=== PATIENT | female | born 1955 | race Caucasian/White ===

== ENCOUNTER → 2016-12-18 | Outpatient (CLI) | payer OTHER ==
[2016-12-18 17:18] LABS: Potassium 4.3 mmol/L (3.5-5.1)
== END | disposition home or self-care (01) ==
LOC: LABWHC1 16:18
PROVIDERS: ATTEND Orthopaedic Surgery
DX: Z01.818 Encounter for other preprocedural examination (principal)
CPT/HCPCS: 36415; 80051

== ENCOUNTER → 2021-11-20 | Outpatient (CLI) | payer MEDICARE ==
--- NOTE | 2021-11-22 14:46 | MR ---
EXAMINATION TYPE: MR kidney wo/w con DATE OF EXAM: 11/20/2021 COMPARISON: Outside CT abdomen July 17, 2021 HISTORY: Rt kidney cyst per patient. Abnormal CT. Nonsimple cyst. CONTRAST: Standard multiplanar, multisequence MRI departmental protocol images were obtained without contrast a nd with 12 mL intravenous Gadavist gadolinium contrast. Imaging performed of the abdomen focusing on the bilateral kidneys. FINDINGS: Kidneys: Corresponding to recent CT there is exophytic round well-circumscribed lesion laterally lowe r pole level measuring 1.5 x 1.5 x 1.8 cm. Lesion shows T1 isointensity to slight hyperintensity rela tive to cortex and T2 isointensity without restricted diffusion. Lesion on dynamic postcontrast imagi ng shows no internal enhancement. Findings consistent with proteinaceous or hemorrhagic cyst. Remaind er of both kidneys show some cortical thinning. No concerning greater than 1.0 cm solid or cystic mas s is present bilaterally. There is 7 mm simple-appearing exophytic thin-walled cyst medially lower po le level axial image 24 in the right kidney. No hydronephrosis is seen bilaterally. Other: Lung bases are grossly clear. There is diffuse signal dropout in the liver consistent with dif fuse fatty infiltration. Gallbladder, spleen, pancreas, and both adrenal glands appear within normal limits. No concerning small or large bowel dilatation. Postsurgical change L4-L5 level is present cau sing artifact. No suspicious enhancement is seen. No intra-abdominal ascites. No greater than 3.0 cm AAA. IMPRESSION: Simple appearing 7 mm thin-walled cyst medially anteriorly lower pole right kidney and th in walled proteinaceous or hemorrhagic 1.8 cm exophytic cyst laterally mid to lower pole of the right kidney correspond to areas of concern on recent CT. No suspicious solid or cystic mass to suggest ma lignancy.
== END | disposition home or self-care (01) ==
LOC: RADMRIMAIN 05:58
PROVIDERS: ATTEND Urology
DX: N28.1 Cyst of kidney, acquired (principal)
CPT/HCPCS: 74183; A9585

== ENCOUNTER → 2023-02-04 | Outpatient (CLI) | payer MEDICARE ==
--- NOTE | 2023-02-08 12:26 | MR ---
EXAMINATION TYPE: MR lumbar spine wo con DATE OF EXAM: 02/04/2023 7:35 PM COMPARISON: CT 07/17/2021. CLINICAL INDICATION: Female, 67 years old with history of M47.816;PAIN AND DEGENERATION ABOVE AND BEL OW FUSION X 1 YEAR - HX OF FUSION 8 YEARS AGO TECHNIQUE: Multi planar, multi sequence imaging was performed utilizing: T1-weighted, T2-weighted, a nd turbo inversion recovery imaging of the lumbar spine. IV Contrast: None. FINDINGS: Alignment: The lumbar vertebral bodies have preserved heights with grade 1 anterolisthesis of L5 on S 1.. Cord: The conus medullaris and the distal spinal cord appear unremarkable with regards to their signa l intensity and morphology. Bones/Discs: Multilevel disc degeneration changes with inversion recovery signal of the adjoining end plates of L1 and L2 compatible with reactive edema. There is post surgical changes to L4 and L5. Scat tered osteophyte formation and Schmorl's nodes and disc space narrowing. T12-L1: No evidence of significant spinal canal stenosis or neural foraminal stenosis. L1-L2: No evidence of significant spinal canal stenosis or neural foraminal stenosis. L2-L3: Left central disc extrusion with inferior migration of disc material up to 14 mm. This materia l abuts the forming left nerve roots series 601 image 21. Facet joint arthropathy with moderate bilat eral neural foraminal stenosis. L3-L4: Disc bulge /osteophyte and facet joint arthropathy result in mild spinal canal and moderate to severe left and moderate right bilateral neural foraminal stenosis. L4-L5: Disc bulge and facet joint arthropathy result in mild spinal canal and moderate to severe bila teral neural foraminal stenosis. L5-S1: Disc uncovering from grade 1 anterolisthesis and facet joint arthropathy with mild spinal debra l stenosis and moderate to severe right and moderate left neural foraminal stenosis. No significant spinal canal or neural foraminal stenosis in the remainder of the visualized levels. IMPRESSION: 1. L2-L3 left central disc herniation with inferior migration of disc material. This abuts the formi ng nerve on the left. 2. Post surgical change with varying degrees of neural foraminal stenosis throughout the spine worse at L5-S1 on the right with moderate to severe, bilateral L4-L5 moderate to severe, and L3-L4 moderat e severe left.
== END | disposition home or self-care (01) ==
LOC: RADMRIMAIN 18:26
PROVIDERS: ATTEND Orthopaedic Surgery Orthopaedic Surgery of the Spine
DX: M47.816 Spondylosis without myelopathy or radiculopathy, lumbar region (principal); M51.36 Other intervertebral disc degeneration, lumbar region; M99.73 Connective tissue and disc stenosis of intervertebral foramina of lumbar region
CPT/HCPCS: 72148

== ENCOUNTER → 2024-06-07 | Outpatient (CLI) | payer OTHER ==
[2024-06-07 10:42] VITALS: BP 120/72; PULSE 73; RESP 16; TEMP 98.1
--- NOTE | 2024-06-07 11:22 | P.HPOB ---
History of Present Illness H&P Date: 06/07/24 Chief Complaint: The patient is here for her routine gynecologic exam. This is a 69-year-old -0-2-0 an LMP of 2005. The patient is here to reestablish with this office. She was last seen here on 06/24/2016. She is without gynecologic complaints and denies any postmenopausal bleeding. She states she had a mammogram and bone density test done at [facility] on 06/03/2024. Results are pending. Review of Systems She states she has lost about 15 pounds over the past year. She denies respiratory or cardiac problems. GI: Occasional diarrhea and occasional issues with hemorrhoids. : She states she has been having urinary leakage for several years. This seems to be worse with diuretics. She seems to leak with coughing, sneezing, standing up, and bending over. She has seen 2 urologist for this in the past. She has never had surgery for incontinence. Past Medical History Past Medical History: Heart Failure, Diabetes Mellitus, Hypertension, Liver Disease, Renal Disease, Thyroid Disorder Additional Past Medical History / Comment(s): arthritis, gout, hypothyroidism, chronic kidney disease, type 2 diabetes, and chronic back problems with degenerative disc disease. Past DATA ANALYTICS ANALYST history: LEEP procedure in 1984 with HPV. No other history of STDs. History of Any Multi-Drug Resistant Organisms: None Reported Past Surgical History: Appendectomy, Back Surgery, Breast Surgery, Section Additional Past Surgical History / Comment(s): BILAT OVARIAN WEDGE RESECTION. GANGLION CYST REMOVED FROM LT HAND. CYST REMOVED FROM LT FOOT. ORIF RT LITTLE FINGER. lumbar lami with discectomy L2-l3. Benign breast biopsy, cervical conization approximately 1999, full D&Cs. Past Psychological History: Depression Smoking Status: Never smoker Past Alcohol Use History: None Reported Past Drug Use History: None Reported Additional History: She was a and has not been sexually active since approximately 1998. She lives on her own. - Past Family History Mother Family Medical History: Cancer Additional Family Medical History / Comment(s): Breast cancer. . Ma erwin grandmother also had breast cancer. Father Family Medical History: Diabetes Mellitus, Myocardial Infarction ([place]) Additional Family Medical History / Comment(s): . Paternal aunt had breast cancer. Medications and Allergies Home Medications Medication Instructions Recorded Confirmed Type Albuterol Inhaler [Ventolin 1 puff INHALATION DIRECTED 08/11/14 06/07/24 History Inhaler] Enalapril [Vasotec] 10 mg PO DAILY 08/11/14 06/07/24 History Fluticasone Propionate [Flonase] 1 spray INTRANASAL BID 08/11/14 06/07/24 History Hydroxychloroquine Sulfate 200 mg PO BID 08/11/14 06/07/24 History [Plaquenil] Levothyroxine Sodium [Synthroid] 100 mcg PO DAILY 08/11/14 06/07/24 History Sertraline [Zoloft] 50 mg PO QAM 08/11/14 06/07/24 History Gabapentin 300 mg PO TID 10/18/14 06/07/24 History Sertraline HCl 100 mg PO HS 10/18/14 06/07/24 History Acetaminophen [Acetaminophen ER] 600 mg PO DAILY 06/07/24 06/07/24 History Atorvastatin [Lipitor] 10 mg PO DAILY 06/07/24 06/07/24 History Buprenorphine [Buprenorphine 5 1 patch TOPICAL WEEKLY 06/07/24 06/07/24 History MCG/HR] Dupilumab [Dupixent Syringe] 300 mg INJ DIRECTED 06/07/24 06/07/24 History Famotidine 20 mg PO DAILY 06/07/24 06/07/24 History Furosemide [Lasix] 20 mg PO DAILY 06/07/24 06/07/24 History Magnesium Oxide [Mag-Ox] 400 mg PO DAILY 06/07/24 06/07/24 History allopurinoL 300 mg PO DAILY 06/07/24 06/07/24 History traZODone HCL [Desyrel] 50 mg PO DIRECTED PRN 06/07/24 06/07/24 History Allergies Allergy/AdvReac Type Severity Reaction Status Date / Time nifedipine Allergy Swelling Unverified 06/07/24 10:25 semaglutide [From Ozempic] Allergy Nausea & Unverified 06/07/24 10:25 Vomiting & Diarrhea Sulfa (Sulfonamide Allergy DIZZINESS Verified 06/07/24 10:24 Antibiotics) Exam Vital Signs Temp Pulse Resp BP Pulse Ox 06/07/24 10:40 98.1 F 73 16 120/72 97 Intake and Output 06/06/24 06/07/24 06/07/24 22:59 06:59 14:59 Other: Weight 115.666 kg Height 5 feet 3 inches, weight 255 pounds, BMI 45.2. This is a well-developed well-nourished obese white female who is alert and oriented times 3 in no acute distress. HEENT: Within normal limits. NECK: Supple without mass or thyromegaly. CHEST AND LUNGS: Clear to auscultation. HEART: Regular rate and rhythm. BREASTS: Are without mass or discharge. AXILLARY EXAM: Negative for adenopathy. BACK: Negative for CVA tenderness. ABDOMEN: Soft,, nontender, without palpable masses. PELVIC EXAM: Normal external genitalia with mild atrophy. Cervix and vagina appear normal with mild to moderate atrophy. The cervix appears nulliparous. There is no unusual discharge. There is no evidence of prolapse. The uterus is midposition, nongravid size and nontender. There are no palpable adnexal masses or tenderness. Bimanual examination is somewhat limited secondary to her size. There is minimal urethral mobility with cough and Valsalva. No urinary leakage was demonstrated. RECTAL EXAM: Rectovaginal exam is negative for mass or tenderness and is negative for occult blood. EXTREMITIES: Nontender. IMPRESSION: 1. 69-year-old menopausal female with normal gynecologic exam. 2. Multiple medical problems. 3. Obesity. 4. Complaints of urinary incontinence with no significant physical findings on exam today. Probable stress urinary incontinence made worse with diuretics. PLAN: 1. Pap smear was performed. Her last Pap smear was on 06/24/2016. I do not have that result at this time. I will try to obtain that result since it was done here. We will continue Pap smears until we have had 3 negative Pap smears within a 10-year period. 2. Self breast awareness was discussed with the patient. We have also discussed symptoms associated with inflammatory breast cancer. 3. Screening mammogram was recently done at [facility] according to the patient on 06/03/2024. She will try to get me the results for this. 4. Osteoporosis prevention was discussed. I have stressed the importance of adequate calcium, vitamin D and regular exercise. Recommended amounts of calcium and vitamin D were also discussed. Bone density testing was recently done on 06/03/2024 at [facility]. She will try to get me this result. 5. We have had a long discussion regarding her urinary leakage. I stressed the importance of trying to empty her bladder as completely as possible as well as doing timed voids and Kegel exercises. These were explained to the patient. She states she has seen 2 urologist in the past. She has never had surgery for this. If she continues to have issues with the leakage, we will consider referral to Dr. Tirso Mejía, the gynecologic urologist. She was instructed to call if she wishes to proceed with this referral. 6. The patient was advised to return in 1-2 years for her well woman examination and as needed.
== END ==
LOC: WWCWWP 10:09
PROVIDERS: ATTEND Obstetrics & Gynecology

== ENCOUNTER 2024-08-02 09:34 | Day surgery (SDC) | payer OTHER ==
[2024-08-02] MEDS ORDERED: LIDOCAINE 1% (10MG/ML) FOR IV START INTRADERMA PRN (10:33)
[2024-08-02] MEDS: IV FLUID CONTINUATION 1,000 ML IV ONE (10:42)
[2024-08-02 10:54] VITALS: RESP 16; TEMP 99.3
[2024-08-02] MEDS: LACTATED RINGERS 1,000 ML IV SCH (11:02)
[2024-08-02 11:03] LABS: Glucose,Whole Blood 116 mg/dL (70-110)
[2024-08-02] MEDS ORDERED: PROPOFOL 10 MG/ML 20 ML VIAL IV ONE (11:34)
--- NOTE | 2024-08-02 11:53 | P.PCN ---
Date of Procedure: 08/02/24 Procedure(s) Performed: BRIEF HISTORY: Patient is a 69-year-old pleasant white female scheduled for an elective colonoscopy as a part of screening for colon cancer. PROCEDURE PERFORMED: Colonoscopy. PREOPERATIVE DIAGNOSIS: Screening for colon cancer. IV sedation per Anesthesia. PROCEDURE: After informed consent was obtained, the patient, was brought into the endoscopy unit. IV sedation was administered by Anesthesia under continuous monitoring. Digital rectal examination was normal. Initially the Olympus CF-160 flexible video colonoscope was then inserted in the rectum, gradually advanced into the cecum without any difficulty. Careful examination was performed as the scope was gradually being withdrawn. Ileocecal valve and the appendiceal orifice were visualized and appeared normal. Prep was.. Mucosa of the cecum, ascending colon, transverse colon, descending colon, sigmoid colon, and rectum appeared normal. Scattered sigmoid diverticulosis. Retroflexion was performed in the rectum and no lesions were seen. The patient tolerated the procedure well. IMPRESSION: Normal-appearing colon from rectum to cecum no evidence of colorectal neoplasia. Scattered sigmoid diverticulosis. RECOMMENDATIONS: Findings of this examination were discussed with the patient as well as her family. She was advised to have repeat screening colonoscopy in 10 years.
[2024-08-02 12:26] VITALS: BP 128/70; PULSE 78
== END 2024-08-02 12:34 | disposition home or self-care (01) ==
LOC: ORWHC2ENDO 09:34
PROVIDERS: ATTEND Internal Medicine Gastroenterology
DX: Z12.11 Encounter for screening for malignant neoplasm of colon (principal); K57.30 Diverticulosis of large intestine without perforation or abscess without bleeding; I50.9 Heart failure, unspecified; E78.5 Hyperlipidemia, unspecified; E03.9 Hypothyroidism, unspecified; I13.0 Hypertensive heart and chronic kidney disease with heart failure and stage 1 through stage 4 chronic kidney disease, or unspecified chronic kidney disease; E11.22 Type 2 diabetes mellitus with diabetic chronic kidney disease; N18.30 Chronic kidney disease, stage 3 unspecified; F32.A Depression, unspecified; E66.9 Obesity, unspecified; Z88.2 Allergy status to sulfonamides; Z88.8 Allergy status to other drugs, medicaments and biological substances; Z79.899 Other long term (current) drug therapy; Z79.890 Hormone replacement therapy
CPT/HCPCS: 45378; J2704

== ENCOUNTER → 2024-10-28 | Outpatient (CLI) | payer OTHER ==
--- NOTE | 2024-10-28 12:37 | US ---
EXAMINATION TYPE: US kidneys/renal and bladder DATE OF EXAM: 10/28/2024 COMPARISON: MRI 11/20/2021 CLINICAL INDICATION: Female, 69 years old with history of N18.30 CHRONIC KIDNEY DISEASE, STAGE 3 UNSP ECIFIED; Hx HTN, DM, and recent water retention. Hx RIght renal cyst TECHNIQUE: Grayscale imaging of the bilateral kidneys and urinary bladder: FINDINGS: EXAM MEASUREMENTS: Right Kidney: 9.6 x 4.6 x 3.9 cm Left Kidney: 9.6 x 5.0 x 4.6 cm Post Void Residual Volume: NA mL Right Kidney: Exophytic cyst redemonstrated = 2.2 x 2.1 x 1.9 cm Left Kidney: WNL Bladder: Not fully distended, WNL as visualized Bilateral Jets seen: No Normal Post Void Residual: NA There is no evidence for hydronephrosis at this point in time. No nephrolithiasis is seen. Stable 2. 2 cm exophytic lesion right kidney likely reflecting hemorrhagic or proteinaceous cyst. The urinary bladder is anechoic. IMPRESSION: As above. [facility], , 10/28/2024 12:35 PM
== END | disposition home or self-care (01) ==
LOC: RADUSWWP 12:01
PROVIDERS: ATTEND Internal Medicine Hospice and Palliative Medicine
DX: N28.1 Cyst of kidney, acquired (principal); N18.30 Chronic kidney disease, stage 3 unspecified
CPT/HCPCS: 76770

== ENCOUNTER → 2025-03-15 | Outpatient (CLI) | payer OTHER ==
[2025-03-15 14:09] VITALS: BP 165/79; PULSE 88; RESP 16; TEMP 98
--- NOTE | 2025-03-15 14:53 | P.SLEEP ---
History of Present Illness DATE: 03/15/2025 CONSULTATION/NEW PATIENT EVALUATION HISTORY OF PRESENT ILLNESS/SLEEP-WAKE EVALUATION: 69-year-old lady had been e valuated in the sleep center for possible obstructive sleep apnea hypopnea syndrome. SLEEP SCHEDULE: Usually sleep schedule from midnight until around 10 AM. FALLING ASLEEP: Patient has difficulties with falling asleep, takes trazodone at bedtime. DURING SLEEP: Patient wakes up from sleep up to 3 times with 3 episodes of nocturia. Positive history of loud snoring. Positive history of grinding teeth, dry mouth, episodes of sleep talking, restless leg symptoms, episodes of gasping for air, sweating, heartburn no history of hypnogogical hallucinations, sleep paralysis, or cataplexy. DURING THE DAY/WAKE STATE: In the morning patient wake up tired, has problems with memory, concentration, irritability. Oxford sleepiness scale is increased to 12. Patient takes 1 nap during the day. PAST MEDICAL HISTORY: Asthma, gout, hypertension, diabetes mellitus, hyperlipidemia, hypothyroidism. PAST SURGICAL HISTORY: Basal cell cancer removed from the skin of the face. MEDICATIONS: Please see below. SOCIAL HISTORY: Please see belowl. FAMILY HISTORY: Please see below. REVIEW OF SYSTEMS: Loud snoring, awakenings from sleep, sleepiness during the day. No fevers. No double vision. No recent chest pain. No shortness of breath. No abdominal pain. No bleeding episodes. No blood in urine. No seizure episodes. PHYSICAL EXAMINATION: GENERAL: A pleasant patient without any distress. VITAL SIGNS: Please see below, weight 274 pounds, BMI 49.9. HEENT: PERRLA, EOMI. Evaluation of oropharynx showed tongue protrudes midline, low position of soft palate Mallampati 3, short distance between soft palate and posterior pharyngeal wall. NECK: Supple. No JVD. Thyroid is not palpable. 16 inches in circumference. LUNGS: Clear to percussion and to auscultation. Good air exchange. No wheezing or rhonchi. HEART: S1, S2 regular. No murmurs, gallops or rubs. ABDOMEN: Soft and nontender. Bowel sounds are present. No organomegaly appreciated. EXTREMITIES: No clubbing or cyanosis. ADVANCED SEAL DELIVERY SYSTEM: Awake, alert, and oriented x3. Cranial nerves 2 to 7 intact. There is no fasciculation or atrophy noted. No focal deficits observed. ASSESSMENT: 1. Loud snoring, multiple awakenings from sleep, low position of soft palate Mallampati 3, short distance between soft palate and posterior pharyngeal wall, wide neck 16 inches in circumference, sleepiness with Oxford Sleepiness Scale 12. Obstructive sleep apnea hypopnea syndrome. 2. Obesity, BMI 49.9. 3. Asthma. 4. Hypertension. 5 gout. 6 . Hyperlipidemia. 7. Diabetes mellitus. 8. Hypothyroidism. 9 . Status post basal cell carcinoma removed. 10. Status post . 11. Status post low back fusion and laminectomy. 12. Status post tonsillectomy. PLAN: 1. Polysomnography for evaluation of patient's breathing during sleep. 2. Following plan after reading sleep study. 3. Preferable position during sleep on the side. 4. No driving if patient feels any sleepiness. Patient is aware of civil and criminal liability for unsafe driving. 5. Sleep hygiene with regular sleep time for at least 7.5-8 hours. 6. Watching and losing weight. Thank you very much for referring this patient for consultation. Sincerely, Clinton Michael MD, PhD, FAASM. Diplomat of [place] [employer], Sleep Medicine Board by [place] [employer] [place] [employer] [facility] [place] cc: Ramses Avila MD Past Medical History Past Medical History: Coronary Artery Disease (CAD), Heart Failure, Diabetes M ellitus, Hyperlipidemia, Hypertension, Liver Disease, Renal Disease, Thyroid Disorder Additional Past Medical History / Comment(s): arthritis, gout, hypothyroidism, chronic kidney disease, type 2 diabetes, and chronic back problems with degenerative disc disease, spinal stenosis, uses walker, has homecare History of Any Multi-Drug Resistant Organisms: None Reported Past Surgical History: Appendectomy, Back Surgery, Breast Surgery, Section, Orthopedic Surgery, Tubal Ligation Additional Past Surgical History / Comment(s): BILAT OVARIAN WEDGE RESECTION, GANGLION CYST REMOVED FROM LT HAND, CYST REMOVED FROM LT FOOT, ORIF RT LITTLE FINGER, lumbar lami with discectomy L2-l3, carpal tunnel, Benign breast biopsy, cervical conization approximately 1999, full D&Cs. Past Anesthesia/Blood Transfusion Reactions: No Reported Reaction Past Psychological History: Anxiety, Depression Smoking Status: Never smoker Past Alcohol Use History: None Reported Past Drug Use History: None Reported - Past Family History Mother Family Medical History: Cancer Additional Family Medical History / Comment(s): Breast cancer. . Maternal grandmother also had breast cancer. Father Family Medical History: Diabetes Mellitus, Myocardial Infarction ([place]) Additional Family Medical History / Comment(s): . Paternal aunt had breast cancer. age 35 - [place]. Dads aunts and uncler - hx diabetes and heart disease. Medications and Allergies Home Medications Medication Instructions Recorded Confirmed Type Enalapril [Vasotec] 10 mg PO DAILY 08/11/14 08/02/24 History Levothyroxine Sodium [Synthroid] 100 mcg PO DAILY 08/11/14 03/15/25 History Sertraline [Zoloft] 50 mg PO QAM 08/11/14 03/15/25 History Gabapentin 300 mg PO TID 10/18/14 03/15/25 History Acetaminophen [Acetaminophen ER] 2 tab PO TID 06/07/24 03/15/25 History Atorvastatin [Lipitor] 10 mg PO DAILY 06/07/24 03/15/25 History Buprenorphine [Buprenorphine 5 1 patch TOPICAL WEEKLY 06/07/24 08/02/24 History MCG/HR] Dupilumab [Dupixent Syringe] 300 mg INJ DIRECTED 06/07/24 03/15/25 History Famotidine 20 mg PO BID 06/07/24 03/15/25 History Furosemide [Lasix] 10 mg PO BID 06/07/24 03/15/25 History Magnesium Oxide [Mag-Ox] 400 mg PO DAILY 06/07/24 03/15/25 History allopurinoL 300 mg PO DAILY 06/07/24 03/15/25 History traZODone HCL [Desyrel] 50 mg PO DIRECTED PRN 06/07/24 03/15/25 History Albuterol Inhaler [Ventolin Hfa 1 - 2 puff INHALATION Q6H PRN 08/01/24 03/15/25 History Inhaler] Ammonium Lactate [Amlactin] 1 applic TOPICAL DAILY 08/01/24 03/15/25 History Calcium Citrate 250 mg PO DAILY 08/01/24 03/15/25 History Desloratadine [Clarinex] 5 mg PO DAILY 08/01/24 03/15/25 History Fluticasone Nasal [place] [Flonase 2 spray EA NOSTRIL BID 08/01/24 03/15/25 History Nasal [place]] Nystatin 100,000 Unit/gm Powd 1 applic TOPICAL TID 08/01/24 03/15/25 History [Mycostatin Powder] Semaglutide [Ozempic] 0.25 mg SQ MO 08/01/24 08/02/24 History Allergies Allergy/AdvReac Type Severity Reaction Status Date / Time nifedipine Allergy Swelling Verified 08/02/24 10:45 Sulfa (Sulfonamide Allergy DIZZINESS Verified 08/02/24 10:45 Antibiotics) semaglutide [From Ozempic] AdvReac Nausea & Verified 08/02/24 10:45 Vomiting & Diarrhea Physical Exam Vitals: Vital Signs Temp Pulse Resp BP Pulse Ox 03/15/25 14:07 98 F 88 16 165/79 93 L Sleep Note - Sleep Data ESS Total: 12 - Sleep Note Sleep Note: Temperature: 98 F Pulse Rate: 88 Respiratory Rate: 16 Blood Pressure: 165/79 SpO2: 93 Height: Weight: BMI: Neck Circumference: 16
== END ==
LOC: 3 N SLEEP 13:43
PROVIDERS: ATTEND Internal Medicine
DX: G47.33 Obstructive sleep apnea (adult) (pediatric) (principal); I10 Essential (primary) hypertension; M10.9 Gout, unspecified; E66.9 Obesity, unspecified; E11.9 Type 2 diabetes mellitus without complications; E78.5 Hyperlipidemia, unspecified; E03.9 Hypothyroidism, unspecified; Z68.42 Body mass index [BMI] 45.0-49.9, adult; Z90.89 Acquired absence of other organs; Z85.828 Personal history of other malignant neoplasm of skin; Z98.1 Arthrodesis status; Z98.890 Other specified postprocedural states; Z88.2 Allergy status to sulfonamides; Z88.8 Allergy status to other drugs, medicaments and biological substances
CPT/HCPCS: 99211

== ENCOUNTER 2025-03-16 19:53 | Outpatient (CLI) | payer OTHER | END 2025-03-17 06:00 | disposition home or self-care (01) | LOC: 3 N SLEEP 19:53 | PROVIDERS: ATTEND Internal Medicine | DX: G47.33 Obstructive sleep apnea (adult) (pediatric) (principal); Z88.2 Allergy status to sulfonamides; Z88.8 Allergy status to other drugs, medicaments and biological substances | CPT/HCPCS: 95810 ==